=== PATIENT | female | born 1985 | race Caucasian/White ===

== ENCOUNTER → 2025-08-06 13:08 | Outpatient (BNVA) | payer OTHER, SELFPAY | PROVIDERS: Visit Provider Physician Assistant | DX: Z00.00 Encounter for general adult medical examination without abnormal findings (principal); F41.1 Generalized anxiety disorder; E66.01 Morbid (severe) obesity due to excess calories; Z68.41 Body mass index [BMI] 40.0-44.9, adult | CPT/HCPCS: 96127 ==

== ENCOUNTER → 2025-08-06 13:08 | Outpatient (AMB) | payer OTHER, SELFPAY ==
--- OUTSIDE RECORDS SUMMARY | 2022-09-05 11:30 | XMS_ITS | Encounter Summary ---
Author Organization [facility] Address [address] [place] [address] Phone Care Team Providers Care Jackspooler Name Role Phone Veronica Rivera MD Primary Care Provider + Encounter Details Date Type Department Care Team (Late st Contact Info) Description 09/05/2022 11:30 AM EST Hospital Encounter [facility] [address] [place] [phone] Elen Aguillon CNP [address] [place] [phone] [email or web address] Social History Tobacco Use Types Packs/Day Years Used Date Smoking Tobacco: Never Education Answer Date Recorded Are you interested in more education? Not on kate e 01/19/2023 Are you concerned about learning? Not on file 01/19/2023 No 01/19/2023 No 01/19/2023 Digital Access Answer Date Recorded No 02/01/2023 No 02/01/2023 Reliable internet access at home? Not on file 02/01/2023 Device with a working camera? Not on file Intimate Partner Violence Answer Date R ecorded Are you denied basic needs s uch as food, clothing, or medical care? No 11/28/2023 In the past 12 months have y ou been in a relationship with a person who hurts, threatens, or tries to control you? No 11/28/2023 Are you denied basic needs s uch as food, clothing, or medical care? No 11/28/2023 In the past 12 months have y ou been in a relationship with a person who hurts, threatens, or tries to control you? No 11/28/2023 Comments Unknown Sex and Gender Information Value Date Recorded Sex Assigned at Not on file Legal Sex Female 6:54 PM EST Gender Identity Not on file Sexual Orientation Not on file documented as of this encounter Functional Status * Calculated C-SSRS Risk Score (Lifetime/Recent) Answer Date of Assessment Author No Risk Indicated 11/28/2023 6:20 PM EDT Monique Arciniega RN * [place] Suicide Severity Rating Scale (Screener/Recent Self-Report) Question Answer Date of Assessment Author 1. Wish to be (Past 1 Month) No 024 6:20 PM EDT Monique Arciniega RN 2. Non-Specific Active Suici taylor Thoughts (Past 1 Month) No 11/28/2023 6:20 PM EDT Melquiades Arciniega RN 6. Suicidal Behavior (Lifetime) No 4 6:20 PM EDT Monique Arciniega RN documented as of this encounter Plan of Treatment Not on file documented as of this encounter Procedures Procedure Name Priority Date/Time Associated Diagnosis Comments XR FOOT 3 OR MORE VIEWS (RIGHT) Urgent/patient waiting 09/05/2022 11:55 AM EST Right foot strain, initial encounter documented in this encounter Results * XR FOOT 3 OR MORE VIEWS (RIGHT) (09/05/2022 11:55 AM EST) Anatomical Region Laterality Modality Foot Right Computed Radiogr aphy 09/05/2022 11:5 7 AM EST Impressions 09/05/2022 11:58 AM EST No fracture or dislocation. Narrative 09/05/2022 11:58 AM EST XR FOOT 3 OR MORE VIEWS (RIGHT) COMPARISON: None FINDINGS: No fracture. Normal alignment. Normal joint spaces. No soft tissue swelling. Procedure Note Ambrosio Carrillo MD, MPH - 09/05/2022 XR FOOT 3 OR MORE VIEWS (RIGHT) COMPARISON: None FINDINGS: No fracture. Normal alignment. Normal joint spaces. No soft tissueswelling. IMPRESSION: No fracture or dislocation. Elen Aguillon PATHOLOGY ASSISTANT IMG XR LOWER EXTREMITY Catia l Result documented in this encounter Visit Diagnoses Not on filedocumented in this encounter Care Teams Jackspooler Relationship Specialty Start Date End Date Veronica Rivera MD [address] [place] [phone] PCP - General Pediatrics 09/05/22 documented as of this encounter Additional Source Comments The information contained in this document represents components of the legal health record. It is not the complete legal health record.[facility]
--- NOTE | 2025-08-06 13:09 | A.OFFPC_ITS ---
Vital Signs 08/06/25 13:14 Height 5 ft 2.2 in Weight 233 lb 4 oz BMI 42.4 BP 124/72 Blood Pressure Location Rt brachial Position Sitting Respiration 14 Pulse 89 Pulse Source Pulse Oximeter Temp 98 F Temp Source Oral Pulse Oximetry (%) 95 Oxygen Delivery Method Room Air Intake Visit Reasons: CPE Intake Note: New patient visit Technical Training Instructor Required: No Allergies No Known Allergies Allergy (Verified 08/06/25 13:10) Tobacco use date assessed: 08/06/25 Dental Screening Dental Screen Date: 08/06/25 Did you have a dental visit in the last 12 months?: Yes Did you have a dental problem in the last 6 months where you did not have access to dental care?: No Was dental information given to patient?: Patient has dentist HPI CPE HPI Details Patient is a 40-year-old female who presents today to [facility]. She is transferring from [place]. She has not had a physical in 3 years. General: she states her weight fluctuates from 200-260. She is interested in glp1. She is not sure if her insurance will cover it. 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 Psych: Has a history of generalized anxiety and does not want to treat this now. She states that it was worse . She has a 5-year-old in his 7-year-old. 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 1. Little interest or pleasure in doing things: not at all 2. Feeling down, depressed, or hopeless: not at all 3. Trouble falling or staying asleep, or sleeping too much: not at all 4. Feeling tired or having little energy: several days 5. Poor appetite or overeating: not at all 6. Feeling bad about yourself - or that you are a failure or have let yourself or your family down: not at all 7. Trouble concentrating on things, such as reading the newspaper or watching television: not at all 8. Moving or speaking so slowly that other people could have noticed. Or the opposite - being so fidgety or restless that you have been moving around a lot more than usual: not at all 9. Thoughts that you would be better off or of hurting yourself in some way: not at all Total score: 1 Depression Screening Interpretation: Negative Depression Screening Done: Yes 69626 - PHQ-9 Billing: Yes Source: Developed by Drs. Mike Weston, Sirena Fowler, Marty Engle and colleagues, with an educational michelle from [employer]. Thrive Questionnaire Date Thrive assessed: 07/31/25 I am a: Patient What is your living situation today?: I choose not to answer this question Within the past 12 months, did the food you bought not last and you didn't have the money to get more?: I choose not to answer this question Within the past 12 months, did you worry whether your food would run out before you got money to buy more?: I choose not to answer this question Do you have trouble paying for medicines?: I choose not to answer this question Do you have trouble getting transportation to medical appointments?: I choose not to answer this question Do you have trouble paying your heating and electricity bill?: I choose not to answer this question Do you have trouble taking care of your child, family member or friend?: I choose not to answer this question Do you have trouble with day-to-day activities such as bathing, preparing meals, shopping, managing finances, etc.?: I choose not to answer this question Are you currently unemployed and looking for a job?: I choose not to answer this question Are you interested in more education?: I choose not to answer this question Please select the resources that you would like help with: None Currently or been in a relationship where the following occur: I choose not to a nswer THRIVE Score: 0 AUDIT C Alcohol Use Questionnaire (AUDIT-C) 1. How often do you have a drink containing alcohol?: 2-3 times a week 2. How many drinks containing alcohol do you have on a typical day when you are drinking?: 1 or 2 3. How often do you have six or more drinks on one occasion?: Never Total Score: 3 FRANCE-7 AMB Questionnaire FRANCE-7 Feeling nervous, anxious, or on edge: 1 = Several days Not being able to stop or control worryin = Several days Worrying too much about different things: 1 = Several days Trouble relaxin = Several days Being so restless that it is hard to sit still: 0 = Not at all Becoming easily annoyed or irritable: 1 = Several days Feeling afraid as if something awful might happen: 0 = Not at all Total FRANCE-7 score (0-4 normal; 5-9 mild; 10-14 moderate; 15-21 severe): 5 Source: Developed by Drs. Mike Wetson, Sirena Fowler, Marty Engle and colleagues, with an educational michelle from [employer]. FRANCE-7 Assessment Billing FRANCE-7 Assessment Tool: FRANCE-7 Assessment 34723 Physical exam (Primary Care) Depression Screening Interpretation: Negative Thrive Assessment: Date of Thrive Assessment Date Thrive assessed 07/31/25 07/31/25 14:07 Currently or been in a relationship where the following occur: I choose not to answer Const Orientation/consciousness: patient oriented x3 HENMT Ears: hearing grossly normal bilaterally and TM's normal bilaterally General nose exam: No nasal polyps present Face and sinus: Yes sinuses nontender Mouth: Normal oral and palatal mucosa present Eyes Pupils: Equal, round and reactive pupils present EOM: EOMs intact bilaterally Neck Neck: Yes full ROM and Yes no lymphadenopathy Thyroid: Thyroid normal Chest Chest palpation & inspection: normal inspection of the chest Resp Auscultation: clear to auscultation bilaterally Cardio Rate: regular rate Rhythm: regular rhythm Heart sounds: S1 normal heart sound present and S2 normal heart sound present Peripheral pulses: Peripheral pulses 2+ throughout GI Other: Soft, nontender Auscultation: normal bowel sounds Rectal Exam - Female: deferred General: Yes no CVA tenderness Back/Spine/Pelvis Other: Nontender Back: no CVA tenderness Skin General skin exam: no rashes or lesions noted Neuro General: patient oriented x3, gait normal, CN's II-XI intact bilaterally and deep tendon reflexes 2+ bilaterally Cranial nerves: Yes Equal, round and reactive pupils present Motor exam (neuro): 5/5 motor strength present throughout Sensory Exam: double simultaneous stimulation for sensation normal Coordination: [id number] test normal and Romberg test negative Extrem General: Yes normal to inspection and Yes full ROM Psych Affect: normal affect Attitude: cooperative Thought process: Normal thought process present Thought content: Normal thought content present Insight: Good insight present (Psych) Judgement: Good judgement present (Psych) Coding Level of Care Code New Pt Prev Care 18-39yr(13276 Diagnoses Routine general medical examination at a health care facility Z00.00 Severe obesity (BMI >= 40) E66.01 Generalized anxiety disorder F41.1 Additional Codes PHQ-9 - 15012 - PHQ-9 Billing: Yes ([id number]) FRANCE-7 Assessment Billing - FRANCE-7 Assessment Tool: FRANCE-7 Assessment 53744 ([id number]) Assessment & Plan Assessment & Plan (1) Routine general medical examination at a health care facility: Code(s): Z00.00 - Encounter for general adult medical examination without abnormal findings Plan: Health maintenance reviewed Labs ordered We will follow up pending test results (2) Severe obesity (BMI >= 40): Code(s): E66.01 - Morbid (severe) obesity due to excess calories Category: Medical Plan: We will let me know if her insurance covers Wegovy or Zepbound. (3) Generalized anxiety disorder: Code(s): F41.1 - Generalized anxiety disorder Category: Medical Plan: We will monitor Orders: Orders Complete Blood Count Auto Diff Today E66.01 - Morbid (severe) obesity due to e xcess calories, F41.1 - Generalized anxiety disorder, Z00.00 - Encounter for general adult medical examination without abnormal findings Lipid Panel Today E66.01 - Morbid (severe) obesity due to excess calories, F41.1 - Generalized anxiety disorder, Z00.00 - Encounter for general adult medical examination without abnormal findings TSH reflex Free T4 Today E66.01 - Morbid (severe) obesity due to excess calories, F41.1 - Generalized anxiety disorder, Z00.00 - Encounter for general adult medical examination without abnormal findings Vitamin B12 and Folate Today E66.01 - Morbid (severe) obesity due to excess calories, F41.1 - Generalized anxiety disorder, Z00.00 - Encounter for general adult medical examination without abnormal findings UA CC w/rflx Micro + Cult Today E66.01 - Morbid (severe) obesity due to excess calories, F41.1 - Generalized anxiety disorder, R30.0 - Dysuria, Z00.00 - Encounter for general adult medical examination without abnormal findings Comprehensive [place]. Panel Fast Today E66.01 - Morbid (severe) obesity due to excess calories, F41.1 - Generalized anxiety disorder, Z00.00 - Encounter for general adult medical examination without abnormal findings Hemoglobin A1c Today E66.01 - Morbid (severe) obesity due to excess calories, F41.1 - Generalized anxiety disorder, R73.01 - Impaired fasting glucose, Z00.00 - Encounter for general adult medical examination without abnormal findings Microalbumin, Random (w Creat) Today E66.01 - Morbid (severe) obesity due to excess calories, F41.1 - Generalized anxiety disorder, Z00.00 - Encounter for general adult medical examination without abnormal findings
[2025-08-06 13:14] VITALS: BP 124/72; PULSE 89; RESP 14; TEMP 36.6; O2SAT 95; BMI 42.4
--- OUTSIDE RECORDS SUMMARY | 2025-08-06 16:15 | XMS_ITS | Clinical Summary ---
Author Organization [facility] Address [address] [place] [phone] Phone Care Team Providers Care Fur Mixer Name Role Phone Veronica Rivera MD Primary Care Provider + Allergies No known active allergies Medications citalopram (CELEXA) 10 MG tablet Take 1 tablet by mouth every morning. 04/03/2023 Active phenazopyridine (PYRIDIUM) 200 MG tablet Take 1 tablet (200 mg total) by mouth 3 (three) times a day as needed for pain (specific location in comments). 10 tablet 04/22/2023 Active Active Problems Problem Noted Date Diagnosed Date Vitamin D insufficiency 09/08/2021 Anxiety 05/07/2021 02/01/2023 Obesity affecting in first trimester 1 09/27/2016 Overview (09/05/2022): Early 1 hr gtt normal Hypothyroidism, acquired 12/05/2016 Overview (09/05/2022): 07/05/17: taking synthroid 50mcg/day Check TSH Q trimester Normal TSH in , by trimester (per u/[facility] report from [facility]): T1 0.1 - 2.5 mIU/L (06/19/17 TSH is 1.87) T2 0.2 - 3.0 mIU/L (09/01/17 TSH is 1.54) T3 0.3 - 3.0 mIU/L (10/27/17 TSH is 1.34) Per patient she was never formally diagnosed, was on medication to help to achieve . Infertility, female 10/07/2016 Immunizations Immunization Administration Dates Next Due DTP 06/11/1990, 7,1986,08/11,1986 Hepatitis B 12/10/1997,08/11/1997,06/11/1997 Hib,HbOC 01/10/1988 INFLUENZA, SPLIT VIRUS, TRIVALENT PF 07/10/2015 INFLUENZA, SPLIT VIRUS, TRIV ALENT W/ PRESERVATIVE IM 07/04/2019,06/30/2014 Influenza Quadrivalent MDCK Preservative Free IM 09/07/2021,07/05/2017 MMR 01/09/1998,05/12/1987 Meningococcal MPSV4 03/12/2004 Polio - OPV 06/11/1990, 7,1986,06/11,1986 Td (adult) 5 Lf Tetanus Toxo id, PF, Adsorbed 04/11/1998 Tdap 11/28/2023,11/02/2017,05/08/2012 Family History Medical History Relation Comments Hypertension Father hypertension Type 2 Diabetes Paternal Grandfather diabetes me llitus type 2 Ovarian cancer Paternal Grandmother ovarian can cer ; age 57 Relation Status Comments Father Alive Paternal Grandfather Paternal Grandmother Social History Tobacco Use Types Packs/Day Years Used Date Smoking Tobacco: Never Tobacco Cessation:Counseling Given: Not Answered Education Answer Date Recorded Are you interested [...] on file Sexual Orientation Not on file Last Filed Vital Signs Vital Sign Reading Time Taken Comments Blood Pressure 124/85 11/28/2023 7:58 PM EDT Pulse 73 11/28/2023 7:58 PM EDT Temperature 36.3 C (97.4 F) 11/28/2023 7:58 PM EDT Respiratory Rate 17 11/28/2023 7:58 PM EDT Oxygen Saturation 96% 11/28/2023 7:58 PM EDT Inhaled Oxygen Concentration - - Weight 95.3 kg (210 lb) 11/28/2023 2:21 PM EDT Height 157.5 cm (5' 2 ) 11/28/2023 2:21 PM EDT Body Mass Index 38.41 11/28/2023 2:21 PM EDT Plan of Treatment Health Maintenance Due Date Last Done Comments DEPRESSION SCREENING 1998 HEPATITIS C SCREENING 02/05/2004 HIV ONE-TIME SCREENING (18-65 YEARS) 02/05/2004 SMOKING STATUS SCREENING (Once After 26 Yrs) 02/05/2012 PAP SMEAR 06/09/2014 06/09/2011, 03/03/2010 SCREENING FOR DIABETES 2021 INFLUENZA VACCINE (#1) 2025 , 07/04/2019, 07/05/2017, Additional history exists COVID-19 VACCINE (2024- season) 2025 01/26/2021, 01/05/2021 Adult Td,Tdap Booster 11/27/2033 11/28/2023 , 11/02/2017, 05/08/2012, Additional history exists HIB VACCINES Completed 01/10/1988 IPV VACCINES Completed 06/11/1990, 1209/1986, 1986, Additional history exists MENINGOCOCCAL VACCINES (ACWY) Aged Out 03/12/2004 No longer eligible based on patient's age to complete this topic HEPATITIS A VACCINES Aged Out No long er eligible based on patient's age to complete this topic MENINGOCOCCAL VACCINES (B) Aged Out N o longer eligible based on patient's age to complete this topic PNEUMOCOCCAL VACCINES (0-49 years) Aged Out No longer eligible based on patient's age to complete this topic Medical Devices Not on file Procedures Procedure Name Priority Date/Time Associated Diagnosis Comments PAP TEST Routine 06/09/2011 12:00 AM EDT from Last 3 Months or Most Recently Relevant to Health Maintenance Results * Pap Smear (06/09/2011 12:00 AM EDT) 06/09/2011 Narrative [facility] - 06/21/2011 3:02 PM EDT Accession Number: [id number] Report Status: Final Type: Cytology Specimen Type: ThinPrep Pap Test Procedure Date: 06/09/2011 Ordering Provider: JACQUELYN BOUCHER M.D. CASE: [id number] PATIENT: ANTONIETTA [employer] Docent: GILDA Enriquez(ASCP) THINPREP PAP TEST, CERVICAL FINAL CYTOLOGIC INTERPRETATION SPECIMEN ADEQUACY: Satisfactory for evaluation. QUALITY INDICATORS: Endocervical/transformation zone component absent/insufficient. INTERPRETATION: NEGATIVE FOR INTRAEPITHELIAL LESION OR MALIGNANCY. AUTOMATED REVIEW: This specimen was prescreened using the ThinPrep Imaging System. CLINICAL DATA LMP: 05/18/11 TOTAL SLIDES 1 PROCEDURES Screening or High Risk ThinPrep with Auto Pre-Screen - [facility] 1 Final Diagnosis by Doris VO(ASCP), Electronically signed on Tuesday June 21, 2011 at 03:01:19PM us Conversion Provider Not In Sys CYTOLOGY ORDERABL ES Final Result [address] [id number] from Last 3 Months or Most Recently Relevant to Health Maintenance Insurance [facility] [address] [address] [place] [address] [place] [address] [place] [place] [address] [place] [address] [employer] Care Teams Fur Mixer Relationship Specialty Start Date End Date Veronica Rivera MD [address] [place] [address] PCP - General Pediatrics 09/05/22 Additional Source Comments The information contained in this document represents components of the legal health record. It is not the complete legal health record.[facility]
--- OUTSIDE RECORDS SUMMARY | 2025-08-06 16:15 | XMS_ITS ---
Author Name [facility] Organization Unknown Care Team Organization Name Specialty Phone Email Start Date End Da te [facility] Ally Mitchell DO Primary Care 05/18/202304/11 [facility] Adrián Barker Primary Care 02/17/202304/11 [facility] Rosalba, PROVIDER Primary Care 07/19/202204/11
== END ==
LOC: HO.HMCFM 13:09
PROVIDERS: Visit Provider Physician Assistant
DX: Z00.00 Encounter for general adult medical examination without abnormal findings (principal); E66.01 Morbid (severe) obesity due to excess calories; F41.1 Generalized anxiety disorder; Z68.41 Body mass index [BMI] 40.0-44.9, adult

== ENCOUNTER 2025-08-19 07:42 | Outpatient (REF) | payer OTHER, SELFPAY ==
--- OUTSIDE RECORDS SUMMARY | 2022-09-05 11:30 | XMS_ITS | Encounter Summary ---
Author Organization [facility] Address [address] [place] [phone] Phone Care Team Providers Care Geophysical Laboratory Director Name Role Phone Veronica Rivera MD Primary Care Provider + Encounter Details Date Type Department Care Team (Late st Contact Info) Description 09/05/2022 11:30 AM EST Hospital Encounter [facility] [address] [place] [phone] Elen Aguillon CNP [address] [place] [phone] [email or web address] Social History Tobacco Use Types Packs/Day Years [...] 6:20 PM EDT Monique Arciniega RN * [place] Suicide Severity Rating Scale (Screener/Recent Self-Report) Question [...] IMPRESSION: No fracture or dislocation. Elen Aguillon DISTRICT DIRECTOR IMG XR LOWER EXTREMITY Catia l Result documented in this encounter Visit Diagnoses Not on filedocumented in this encounter Care Teams Geophysical Laboratory Director Relationship Specialty Start Date End Date Veronica Rivera MD [address] [place] [phone] PCP - General Pediatrics 09/05/22 documented as of this encounter Additional Source Comments The information contained in this document represents components of the legal health record. It is not the complete legal health record.[facility]
--- OUTSIDE RECORDS SUMMARY | 2025-08-19 08:06 | XMS_ITS | Clinical Summary ---
Author Organization [facility] ity Address [address] [place] [address] Care Team Providers Care Photographic Process Screen Maker Name Role Phone Ally Mitchell DO Primary Care Provider [phone] Surgical History Surgery Date Site/Laterality Comments SECTION 2018 PROCEDURE: HISTORICAL DELIVERY Medical History Medical History Date Comments Historical Medical DX 04/10/2012 DX:NO ACTI VE MEDICAL PROBLEMS Family History Medical History Relation Name Comments Ovarian cancer Paternal Grandmother dads mom, ,60 Breast cancer Neg Hx Colon cancer Neg Hx Prostate cancer Neg Hx Uterine cancer Neg Hx Relation Name Status Comments Brother Alive healthy Father Alive healthy Maternal Grandfather COPD Maternal Grandmother brain a neurysm Mother Alive healthy Paternal Grandfather Alive healthy Paternal Grandmother ovarian cancer Sister 1 Alive healthy Sister 2 Alive healthy Social History Tobacco Use Types Packs/Day Years Used Date Smoking Tobacco: Never Smokeless Tobacco: Never Alcohol Use Standard Drinks/Week Comments Yes 1.7 (1 standard drink = 0.6 oz p ure alcohol) Comments Unknown Sex and Gender Information Value Date Recorded Sex Assigned at Not on file Legal Sex Female 7:59 PM EST Gender Identity Not on file Sexual Orientation Not on file Last Filed Vital Signs Vital Sign Reading Time Taken Comments Blood Pressure 104/60 04/03/2023 10:09 AM EDT Pulse 92 04/03/2023 10:09 AM EDT Temperature - - Respiratory Rate - - Oxygen Saturation - - Inhaled Oxygen Concentration - - Weight 99.8 kg (220 lb) 04/03/2023 10:09 AM EDT Height 157.5 cm (5' 2 ) 04/03/2023 10:09 AM EDT Body Mass Index 40.24 04/03/2023 10:09 AM EDT Plan of Treatment Health Maintenance Due Date Last Done Comments Hepatitis B Vaccines (1 of 3 - 19+ 3-dose series) 2005 HPV Vaccines (1 - 3-dose SCDM series) 2013 Cervical Cancer Screening: Pap Smear 04/01/2022 04/01/2019 Cholesterol Screening (Lipid Panel) 08/13/2022 HIV Screening 08/13/2022 Hepatitis C Screening 08/13/2022 Social Influencers of Health Screening 08/13/2022 Depression Screening 09/11/2024 COVID-19 Vaccine ( - 2024- season) 2025 Influenza Vaccine (#1) 2025 , 07/04/2019, 07/05/2017, Additional history exists DTaP,Tdap,and Td Vaccines (3 - Td or Tdap) 11/02/2027 11/02/2017, 05/08/2012 RSV Immunization Adult Patients (1 - 1-dose 75+ series) 2061 HIB Vaccines Aged Out No longer eligi ble based on patient's age to complete this topic Hepatitis A Vaccines Aged Out No long er eligible based on patient's age to complete this topic IPV Vaccines Aged Out No longer eligi ble based on patient's age to complete this topic MMR Vaccines Aged Out No longer eligi ble based on patient's age to complete this topic Meningococcal ACWY Vaccine Aged Out N o longer eligible based on patient's age to complete this topic Meningococcal B Vaccine Aged Out No l onger eligible based on patient's age to complete this topic Pneumococcal Vaccine: Pediatrics (0 to 5 Years) and At-Risk Patients (6 to 49 Years) Aged Out No longer eligible based on patient's age to complete this topic RSV Immunization Patients Under 20 months Aged Out No longer eligible based on patient's age to complete this topic Varicella Vaccines Aged Out No longer eligible based on patient's age to complete this topic Procedures Procedure Name Priority Date/Time Associated Diagnosis Comments PAP SMEAR Routine 04/01/2019 from Last 3 Months or Most Recently Relevant to Health Maintenance Results * Pap smear (04/01/2019) 04/01/2019 Narrative HISTORICAL TESTING LAB RESULTING AGENCY - 04/05/2019 6:30 PM EDT [id number] THINPREP PAP, IMAGED: NEGATIVE FOR SQUAMOUS INTRAEPITHELIAL LESION AND MALIGNANCY . ANALILIA PARNELL , CT(ASCP) (CASE ELECTRONICALLY SIGNED 04 05 2019) RESULT OF APTIMA HIGH RISK HPV ASSAY: HIGH RISK HPV: NEGATIVE (SEROTYPES 16,18,31,33,35,39,45,51,52,56,58,59,66,68) COMPLETED ON 2019-04-04 ADEQUACY: SATISFACTORY ENDOCERVICAL/TRANSFORMATION ZONE COMPONENT ABSENT. SOURCE: THINPREP PAP HPV ANY DX: REFLEX 16 AND 18, CERVICAL, IMAGED CLINICAL INFORMATION: HPV ANY DIAGNOSIS. PAP HX NEG [Z12.4] us Rabia JI LAB CYTOLOGY ORDERABLES Final R esult HISTORICAL TESTING LAB RESULTING AGENCY from Last 3 Months or Most Recently Relevant to Health Maintenance Care Teams Photographic Process Screen Maker Relationship Specialty Start Date End Date Ally Mitchell DO [address] [place] [address] [place] [address] PCP - General 02/16/23
[2025-08-19 10:58] LABS: MANUAL DIFF FLAG NO
[2025-08-19 11:02] LABS: Hematocrit 41.1 % (37.0-47.0); Hemoglobin 13.5 g/dl (12.0-16.0); Imm Gran Abs Auto 0.01 X10*3/uL (0.00-0.03); Imm Gran Pct Auto 0.2 % (0.0-0.4); Lymphocytes Absolute Auto 1.5 X10*3/uL (1.2-4.9); Mean Corpuscular HGB Conc 32.8 g/dl (31.0-35.0); Mean Corpuscular Hemoglobin 28.4 pg (27.0-33.0); Mean Corpuscular Volume 86.5 fL (80.0-98.0); NRBC Abs Auto 0.000 X10*3/uL (0.0-0.012); NRBC Pct Auto 0.0 /100WBC (0.0-0.2); Platelet Count 158 X10*3/uL (160-400); Red Blood Count 4.75 X10*6/uL (4.20-5.50); White Blood Count 5.6 X10*3/uL (4.8-10.8)
[2025-08-19 11:27] LABS: Appearance Urine Turbid; Glucose Urine UA Negative (Negative); PH 5.5 (5.0-9.0); Specific Gravity - Urine 1.025 (1.005-1.025); UMIC TRIGGER UACC YES
[2025-08-19 11:50] LABS: Alanine Aminotransferase 26 U/L (0-31); Albumin Level 4.4 g/dL (3.5-5.0); Alkaline Phosphatase 57 U/L (39-117); Anion Gap 9 (12-20); Aspartate Amino Transferase 22 U/L (5-31); Blood Urea Nitrogen 16 mg/dL (9-16); Calcium 9.4 mg/dL (8.4-10.2); Carbon Dioxide 27 mmol/L (22-29); Chloride 105 mmol/L (96-108); Cholesterol 193 mg/dL (<200); Estimated Glomerular Filt Rate > 60; HDL Cholesterol 66 mg/dL (>40); Potassium 4.2 mmol/L (3.3-5.1); Sodium 137 mmol/L (135-145); Total Protein 7.1 g/dL (6.5-8.0); Triglycerides 74 mg/dL (<150)
[2025-08-19 12:00] LABS: Microalbum/Creatinine Ratio Ur 4.9 ug/mg cr (<30)
[2025-08-19 12:10] LABS: Folate 10.4 ng/mL (> or = 4.0); Vitamin B12 421 pg/mL (200-900)
== END 2025-08-19 07:43 | disposition home or self-care (01) ==
LOC: HO.WFDLDS 07:42
PROVIDERS: Visit Provider Physician Assistant
DX: Z00.00 Encounter for general adult medical examination without abnormal findings (principal); E66.01 Morbid (severe) obesity due to excess calories; F41.1 Generalized anxiety disorder; R73.01 Impaired fasting glucose
CPT/HCPCS: 36415; 80053; 80061; 81001; 82043; 82570; 82607; 82746; 83036; 84443; 85025

== ENCOUNTER 2025-09-02 09:07 | Outpatient (REF) | payer OTHER, SELFPAY ==
--- OUTSIDE RECORDS SUMMARY | 2022-09-05 11:30 | XMS_ITS | Encounter Summary ---
Author Organization [facility] Address [address] [place] [phone] Phone Care Team Providers Care Back Digger Operator Name Role Phone Veronica Rivera MD Primary Care Provider + Encounter Details Date Type Department Care Team (Late st Contact Info) Description 09/05/2022 11:30 AM EST Hospital Encounter [facility] [address] [place] [phone] Elen Aguillon CNP [address] [place] [phone] [email or web address] Social History Tobacco Use Types Packs/Day Years [...] on file documented as of this encounter Plan of [...] IMPRESSION: No fracture or dislocation. Elen Aguillon DIE CLEANER IMG XR LOWER EXTREMITY Catia l Result documented in this encounter Visit Diagnoses Not on filedocumented in this encounter Care Teams Back Digger Operator Relationship Specialty Start Date End Date Veronica Rivera MD [address] [place] [phone] PCP - General Pediatrics 09/05/22 documented as of this encounter Additional Source Comments The information contained in this document represents components of the legal health record. It is not the complete legal health record.[facility]
--- OUTSIDE RECORDS SUMMARY | 2025-09-02 09:42 | XMS_ITS | Encounter Summary ---
Author Organization [facility] Prior to 07/12/2024 Address [address] [place] [address] Care Team Providers Care Fitting Room Attendant Name Role Phone Veronica Rivera MD Primary Care Provider Unava Ally Colorado DO Primary Care Provider Unavaila ble Encounter Details Date Type Department Care Team Description 11/22/2017 Can Filling Room Sweeper Report Medical Records [address] [place] [address] [facility] Diabetes Education [address] [facility] [address] [place] [address] Social History Tobacco Use Types Packs/Day Years Used Date Smoking Tobacco: Never Smokeless Tobacco: Never Alcohol Use Standard Drinks/Week Comments Yes 1.7 (1 standard drink = 0.6 oz p ure alcohol) social Sex Assigned at Date Recorded Not on file documented as of this encounter Plan of Treatment Not on file documented as of this encounter Visit Diagnoses Not on filedocumented in this encounter Care Teams Fitting Room Attendant Relationship Specialty Start Date End Date Veronica Rivera MD PCP - General Internal Medicine 03/08/12 02/15/23 Ally Mitchell DO PCP - General Internal Medicine 02/16/23 documented as of this encounter
--- OUTSIDE RECORDS SUMMARY | 2025-09-02 09:42 | XMS_ITS | Encounter Summary ---
Author Organization [facility] Prior to 07/12/2024 Address [address] [place] [address] Care Team Providers Care Emery Wheel Molder Name Role Phone Veronica Rivera MD Primary Care Provider Unava ilable Ally Mitchell DO Primary Care Provider Unavaila ble Encounter Details Date Type Department Care Team Description 12/12/2017 Employee Welfare Manager Report Medical Records [address] [place] [address] Janeth Moreno MD Social History Tobacco Use Types Packs/Day Years [...] on filedocumented in this encounter Care Teams Emery Wheel Molder Relationship Specialty Start Date End Date Veronica Rivera MD PCP - General Internal Medicine 03/08/12 02/15/23 Ally Mitchell DO PCP - General Internal Medicine 02/16/23 documented as of this encounter
--- OUTSIDE RECORDS SUMMARY | 2025-09-02 09:42 | XMS_ITS | Clinical Summary ---
Author Organization [facility] ity Address [address] [place] [address] Care Team Providers Care Social Service Manager Name Role Phone Ally Mitchell DO Primary Care Provider [phone] Surgical History Surgery Date Site/Laterality Comments SECTION [...] RESULTING AGENCY - 04/05/2019 6:30 PM EDT [id number] THINPREP PAP, IMAGED: NEGATIVE FOR SQUAMOUS INTRAEPITHELIAL [...] Recently Relevant to Health Maintenance Care Teams Social Service Manager Relationship Specialty Start Date End Date Ally Mitchell DO [address] [place] [address] [place] [address] PCP - General 02/16/23
--- OUTSIDE RECORDS SUMMARY | 2025-09-02 09:42 | XMS_ITS | Encounter Summary ---
Author Organization [facility] Prior to 07/12/2024 Address [address] [place] [address] Care Team Providers Care Curriculum Development Specialist Name Role Phone Veronica Rivera MD Primary Care Provider Unava Ally Colorado DO Primary Care Provider Unavaila ble Encounter Details Date Type Department Care Team Description 11/22/2017 Dip Lube Operator Report Medical Records [address] [place] [address] [facility] Diabetes Education [address] [facility] [address] [place] [address] Social History Tobacco Use Types Packs/Day Years [...] on filedocumented in this encounter Care Teams Curriculum Development Specialist Relationship Specialty Start Date End Date Veronica Rivera MD PCP - General Internal Medicine 03/08/12 02/15/23 Ally Mitchell DO PCP - General Internal Medicine 02/16/23 documented as of this encounter
--- OUTSIDE RECORDS SUMMARY | 2025-09-02 09:42 | XMS_ITS | Encounter Summary ---
Author Organization [facility] Prior to 07/12/2024 Address [address] [place] [address] Care Team Providers Care Lining Feller Name Role Phone Veronica Rivera MD Primary Care Provider Unava ilable Ally Mitchell DO Primary Care Provider Unavaila ble Reason for Visit * Reason Onset Date Comments APPOINTMENT 07/12/2016 Encounter Details Date Type Department Care Team Description 07/12/2016 Telephone VIDEOTAPE RECORDING ENGINEER - [address] [address] Tatiana Patel CNM APPOINTMENT Social History Tobacco Use Types Packs/Day Years Used Date Smoking Tobacco: Never Smokeless Tobacco: Never Alcohol Use Standard Drinks/Week Comments Yes 1.7 (1 standard drink = 0.6 oz p ure alcohol) social Sex Assigned at Date Recorded Not on file documented as of this encounter Miscellaneous Notes * Telephone Encounter - Cristian Bo - 07/12/2016 2:59 PM EDT LVM for pt to call back. 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 Please schedule. ABEL documented in this encounter Plan of Treatment Not on file documented as of this encounter Visit Diagnoses Not on filedocumented in this encounter Care Teams Lining Feller Relationship Specialty Start Date End Date Veronica Rivera MD PCP - General Internal Medicine 03/08/12 02/15/23 Ally Mitchell DO PCP - General Internal Medicine 02/16/23 documented as of this encounter
--- OUTSIDE RECORDS SUMMARY | 2025-09-02 09:42 | XMS_ITS | Encounter Summary ---
Author Organization [facility] Prior to 07/12/2024 Address [address] [place] [address] Care Team Providers Care Tank Refinisher Name Role Phone Veronica Rivera MD Primary Care Provider Unava ilable Ally Mitchell DO Primary Care Provider Unavaila ble Encounter Details Date Type Department Care Team Description 03/31/2015 Release of Information Medical Records [address] [place] [address] Abstract, Provider Social History Tobacco Use Types Packs/Day Years [...] on filedocumented in this encounter Care Teams Tank Refinisher Relationship Specialty Start Date End Date Veronica Rivera MD PCP - General Internal Medicine 03/08/12 02/15/23 Ally Mitchell DO PCP - General Internal Medicine 02/16/23 documented as of this encounter
--- OUTSIDE RECORDS SUMMARY | 2025-09-02 09:42 | XMS_ITS | Encounter Summary ---
Author Organization [facility] Prior to 07/12/2024 Address [address] [place] [address] Care Team Providers Care Limited Radiology Technician Name Role Phone Ally Mitchell DO Primary Care Provider Unavaila ble Encounter Details Date Type Department Care Team Description 04/04/2023 Telephone Adult Medicine - [address] [address] Ally Mitchell DO Social History Tobacco Use Types Packs/Day Years Used Date Smoking Tobacco: Never Smokeless Tobacco: Never Alcohol Use Standard Drinks/Week Comments Yes 1.7 (1 standard drink = 0.6 oz p ure alcohol) social- none since Sex Assigned at Date Recorded Not on file COVID-19 Exposure Response Date Recorded In the last 10 days, have yo u been in contact with someone who was confirmed or suspected to have Coronavirus/COVID-19? No / Unsure 04/03/2023 10:05 AM EDT documented as of this encounter Miscellaneous Notes * Telephone Encounter - Yennifer Arellano - 04/04/2023 11:27 AM EDT Pt called back and informed Labs reviewed, stable * Telephone Encounter - Ellen Fuller M.A. - 04/04/2023 11:22 AM EDT ----- Message from Ally Mitchell DO sent at 04/04/2023 10:41 AM EDT ----- Please review documented in this encounter Plan of Treatment Not on file documented as of this encounter Visit Diagnoses Not on filedocumented in this encounter Care Teams Limited Radiology Technician Relationship Specialty Start Date End Date Ally Mitchell DO PCP - General Internal Medicine 02/16/23 documented as of this encounter
--- OUTSIDE RECORDS SUMMARY | 2025-09-02 09:43 | XMS_ITS | Clinical Summary ---
Author Organization [facility] Prior to 07/12/2024 Address [address] [place] [address] Care Team Providers Care Feather Renovator Name Role Phone Ally Mitchell DO Primary Care Provider Unavaila ble Allergies No known active allergies Medications Medication Sig Dispensed Refills Start Date End Date Status citalopram (CELEXA) 10 MG tabletIndications:FRANCE (generalized anxiety disorder) Take 1 Tablet by mouth daily. 90 Tablet 1 04/03/2023 Active Active Problems Problem Noted Date FRANCE (generalized anxiety disorder) 04/03 Subclinical hypothyroidism 09/08/2021 Vitamin D insufficiency 09/08/2021 Morbid obesity with BMI of 40.0-44.9, ad ult 09/07/2021 Abnormal first trimester screen 04/19/20 Overview: + lynn Will seen genetic counselor at [facility] Obesity affecting in [facility] 07/28/2017 Overview: Early 1 hr gtt normal Infertility, female 10/07/2016 Resolved Problems Problem Noted Date Resolved Date Placental jackson 06/04/2019 06/12/2019 Overview: 05/31/19 survey unremarkable. Fundal placenta away from previous uterine scar. A single planceta jackson is noted. Patient declined diagnostic testing. M recommendations- third trimester sono for growth. Abnormal GTT (glucose tolerance test) 04/04/2019 06/12/2019 Overview: Early gtt 135, 3 hour ordered- normal 3 hour History of gestational diabe eris in prior , currently 04/01/2019 06/12/2019 History of section 04/01/201910/2018 Obesity in 04/01/2019 06/12/2019 Overview: HgbA1C at initial labs One hour GTT in first trimester Repeat GTT 24-28 weeks if early is normal Level 2 Survey Refer to nutrition for BMI?40 Growth US at 32 and 36 weeks for BMI?40 Weekly NST at 32 weeks for BMI? 45 Screen for BENJAMIN (using tool) and refer for sleep study if positive Anesthesia consult for pre- BMI ?45 or ?50 lb weight gain Transfer to [facility] for pre- BMI?50 DVT prophylaxis- Lovenox if CS and BMI?35 care, subsequent 03/26/2019 06/12/2019 Overview: Zika screen: neg 1. [place] site: [place] 2. Delivery site: [facility] 3. Dating criteria: LMP only 3. Blood type: Lab Results Component Value Date BLDTYPE O POSITIVE 06/19/2017 4. Genetic screening: Date: Result: 5. GBS: Date: 6. FOB name: 7. Plans A. Epidural or other pain management - B. Labor support identified - C. Tdap - Date: D. Breast or Bottle feed: breast E. Baby's name - F. Circumcision - Gestational diabetes mellitu s treated with oral hypoglycemic therapy 11/07/2017 02/21/2018 Overview: 12/01/17 Fasting blood sugars in low 100's. All postprandiols are normal. She will call endocrine - may need nightly insulin? 12/05/17 - FBS 90s to low 100s. Al PP normal. Pt reports she called [facility] Diabetic Edu dept to report mildly elevated FBS - she reports they told her to eat a nightly snack. Referral placed to Dr Navarro office 12/05/17 Dr Powell recommends starting nightly hypoglycemic - either 10u NPH or 2.5mg glyburide 12/06/17 Spoke with patient and script sent to pharmacy for 2.5mg glyburide nightly. She will begin twice weekly testing. 12/15/17 Reactive NST. FBS about 85-90, PP have also been normal. 12/21/17. Reactive NST. FBS 80-100s, PP normal. Remains on glyburide 2.5mg PO at dinner. Being followed by [facility]. IOL scheduled for 39 weeks. She is counseled re: risk of shoulder dystocia, Erbs, depressed APGARS, and/or maternal injury. All questions answered. 12/29/17 - Reactive NST. FBS 80's-low 90's. (One 106 - forgot med). All PP normal. 01/04/18 - Reactive NST. FBS 80's-low 90's. PP normal. Abnormal glucose tolerance in 10/27/19 18 02/21/2018 Overview: 1 hr gtt 10/27/17 - 137 3 hr - 1 HR GLUCOSE <180 mg/dL 185 (H) 3 HR GLUCOSE <140 mg/dL 99 2 HR GLUCOSE <155 mg/dL 135 FASTING GLUCOSE 70 - 100 mg/dL 104 (H) , supervision, high-risk 06/19/2017 02/21/2018 Overview: Zika screen; neg 1. [place] site: [place] 2. Delivery site: [facility] 3. Dating criteria: LMP confirmed by 1st trimester ultrasound 3. Blood type: O positive 4. Genetic screening: PANARAMA Date: 08/22/17 Result: Normal ultrasound 5. GBS: Negative Date: 12/21/17 6. FOB name: Fermin Rubalcava 7. Plans A. Epidural or other pain management - epidural B. Labor support identified - Khadar; possibly sister Jessica Kumar Tdap - Date: 11/02/17 D. Breast or Bottle feed: breast E. Baby's name - Cris Dockery. Circumcision - NA 8. Ultrasound -08/22/17 - w3d - visualized anatomy appears normal. Incomplete cardiac views. Posterior placenta, cervix 5.4cm. 09/06/17 - w4d - remainder of anatomy appears normal. 10/03/17 - w3d - EFW 717g 1 lb 9oz 54%ile 11/01/17 - w4d - EFW 1320g 2 lb 15oz 61%ile 11/29/17 - 33w2d - EFW 2186g 4 lb 13oz 71%ile 12/04/17 - 34w2d - BPP 812/13/17 - 35w4d - EFW 2598g 5 lb 12oz 57%ile BPP 812/19/17 - 36w3d - BPP 812/26/17 - 37w3d - EFW 3081g 6 lb 13oz 61%ile BPP 04/18 HC:AC 0.94 01/01/18 - 38w3d - BPP 04/18 Hypothyroidism, goal TSH <2.0 12/05/2016 Overview: 07/05/17: taking synthroid 50mcg/day Check TSH Q trimester Normal TSH in , by trimester (per u/s report from [facility]): T1 0.1 - 2.5 mIU/L (06/19/17 TSH is 1.87) T2 0.2 - 3.0 mIU/L (09/01/17 TSH is 1.54) T3 0.3 - 3.0 mIU/L (10/27/17 TSH is 1.34) Per patient she was never formally diagnosed, was on medication to help to achieve . Immunizations Name Administration Dates Next Due Influenza (> 6 Months) 07/04/2019,06/30/2014 Influenza (>6 Months) Split Preservative Free Influenza Vaccine-preservati ve Free-quadrivalent 4 Years 09/07/2021,07/05/2017 Tdap 11/02/2017,05/08/2012 Family History Medical History Relation Name Comments CA Ovarian Paternal Grandmother dads mo m, ,60 CA Breast Negative Hx CA Colon Negative Hx CA Prostate Negative Hx Uterine Cancer Negative Hx Relation Name Status Comments Brother Alive [...] Assigned at Date Recorded Not on file Last Filed Vital Signs Vital Sign Reading Time Taken Comments Blood Pressure 128/70 09/07/2021 11:14 AM EST Pulse 86 09/07/2021 11:14 AM EST Temperature 36.2 C (97.2 F) 09/07/2021 11:14 AM EST Respiratory Rate 16 09/07/2021 11:14 AM EST Oxygen Saturation 98% 09/07/2021 11:14 AM EST RA Inhaled Oxygen Concentration - - Weight 99.8 kg (220 lb) 04/03/2023 10:09 AM EDT Height 157.5 cm (5' 2 ) 04/03/2023 10:09 AM EDT Body Mass Index 40.24 04/03/2023 10:09 AM EDT Plan of Treatment Health Maintenance Due Date Last Done Comments Covid-19 Vaccine (#1) 1986 CERVICAL CANCER SCREENING 04/01/20222018, 07/20/2016, 06/03/2013, Additional history exists BMI CHECK/ADVISE 09/11/2024 04/03/2023, , 04/19/2019, Additional history exists INFLUENZA (#1) 2025 09/07/2021, 06/12, 07/05/2017, Additional history exists DTAP/TDAP/TD (3 - Td or Tdap) 11/02/2027 11/02/2017, 05/08/2012 CHOLESTEROL SCREENING 04/03/2028 04/03/2023 , 09/07/2021, 05/08/2012, Additional history exists PNEUMOCOCCAL VACCINE FOR HIG H RISK PATIENTS (#1) 2051 Care Teams Feather Renovator Relationship Specialty Start Date End Date Ally Mitchell DO PCP - General Internal Medicine 02/16/23
--- OUTSIDE RECORDS SUMMARY | 2025-09-02 09:43 | XMS_ITS | Encounter Summary ---
Author Organization [facility] Prior to 07/12/2024 Address [address] [place] [address] Care Team Providers Care Harness Cutter Name Role Phone Veronica Rivera MD Primary Care Provider Unava ilable Ally Mitchell DO Primary Care Provider Unavaila ble Encounter Details Date Type Department Care Team Description 06/27/2017 Release of Information Medical Records [address] [place] [address] Abstract, Provider Social History Tobacco Use Types [...] on filedocumented in this encounter Care Teams Harness Cutter Relationship Specialty Start Date End Date Veronica Rivera MD PCP - General Internal Medicine 03/08/12 02/15/23 Ally Mitchell DO PCP - General Internal Medicine 02/16/23 documented as of this encounter
--- OUTSIDE RECORDS SUMMARY | 2025-09-02 09:43 | XMS_ITS | Encounter Summary ---
Author Organization [facility] Prior to 07/12/2024 Address [address] [place] [address] Care Team Providers Care Knit Goods Mender Name Role Phone Veronica Rivera MD Primary Care Provider Ally Heath DO Primary Care Provider Unavaila ble Encounter Details Date Type Department Care Team Description 06/07/2018 Pt. Non Urgent Medical Question [address] [address] Tatiana Patel CNM Social History Tobacco Use Types Packs/Day Years Used Date Smoking Tobacco: Never Smokeless Tobacco: Never Alcohol Use Standard Drinks/Week Comments Yes 1.7 (1 standard drink = 0.6 oz p ure alcohol) social Sex Assigned at Date Recorded Not on file documented as of this encounter Progress Notes * Kay Rice R.N. - 06/07/2018 3:34 PM EDTFrom: Antonietta Flores To: Tatiana Lomeli CNM Sent: 06/07/2018 3:27 PM EDT Subject: Vagisil Prohydrate question I bought Vagisil Prohydrate to help with dryness while I'm . On the box it says to consult your doctor before using if you're nursing...is this product ok to use? documented in this encounter Plan of Treatment Not on file documented as of this encounter Visit Diagnoses Not on filedocumented in this encounter Care Teams Knit Goods Mender Relationship Specialty Start Date End Date Veronica Rivera MD PCP - General Internal Medicine 03/08/12 02/15/23 Ally Mitchell DO PCP - General Internal Medicine 02/16/23 documented as of this encounter
--- OUTSIDE RECORDS SUMMARY | 2025-09-02 09:43 | XMS_ITS | Encounter Summary ---
Author Organization [facility] Prior to 07/12/2024 Address [address] [place] [address] Care Team Providers Care Oracle Wms Consultant Name Role Phone Veronica Rivera MD Primary Care Provider Ally Heath DO Primary Care Provider Unavaila ble Encounter Details Date Type Department Care Team Description 01/15/2018 Pt. Non Urgent Medical Question [address] [address] Mindy Guido MD Social History Tobacco Use Types Packs/Day Years Used Date Smoking Tobacco: Never Smokeless Tobacco: Never Alcohol Use Standard Drinks/Week Comments Yes 1.7 (1 standard drink = 0.6 oz p ure alcohol) social Sex Assigned at Date Recorded Not on file documented as of this encounter Progress Notes * Kay Rice R.N. - 01/16/2018 8:42 AM EDTFrom: Antonietta Anne-Marie Mark To: Mindy Guido MD Sent: 01/15/2018 7:04 PM EDT Subject: C section follow up appt I had a on 01/09. At the hospital, I believe I was told to make a follow up appointment forone week after the surgery. When I went to make the appointment at [facility] in [place], the covering machine operator thought the follow up should be closer to 2 weeks. So, I have an appointment scheduled for 01/18 at 9:15...is this too soon to come in and get my stitches out? I can reschedule if so. documented in this encounter Plan of Treatment Not on file documented as of this encounter Visit Diagnoses Not on filedocumented in this encounter Care Teams Oracle Wms Consultant Relationship Specialty Start Date End Date Veronica Rivera MD PCP - General Internal Medicine 03/08/12 02/15/23 Ally Mitchell DO PCP - General Internal Medicine 02/16/23 documented as of this encounter
--- OUTSIDE RECORDS SUMMARY | 2025-09-02 09:43 | XMS_ITS | Encounter Summary ---
Author Organization [facility] Prior to 07/12/2024 Address [address] [place] [address] Care Team Providers Care Actuarial Director Name Role Phone Veronica Rivera MD Primary Care Provider Unava ilable Ally Mitchell DO Primary Care Provider Unavaila ble Encounter Details Date Type Department Care Team Description 03/26/2019 Zika Virus Medical Records [address] [place] [address] Abstract, Provider Social History Tobacco Use Types Packs/Day Years Used Date Smoking Tobacco: Never Smokeless Tobacco: Never Alcohol Use Standard Drinks/Week Comments No 1.7 (1 standard drink = 0.6 oz p ure alcohol) social Sex Assigned at Date Recorded Not on file documented as of this encounter Plan of Treatment Not on file documented as of this encounter Visit Diagnoses Not on filedocumented in this encounter Care Teams Actuarial Director Relationship Specialty Start Date End Date Veronica Rivera MD PCP - General Internal Medicine 03/08/12 02/15/23 Ally Mitchell DO PCP - General Internal Medicine 02/16/23 documented as of this encounter
--- OUTSIDE RECORDS SUMMARY | 2025-09-02 09:43 | XMS_ITS | Encounter Summary ---
Author Organization [facility] Prior to 07/12/2024 Address [address] [place] [address] Care Team Providers Care Scanner Supervisor Name Role Phone Veronica Rivera MD Primary Care Provider Unava ilable Ally Mitchell DO Primary Care Provider Unavaila ble Encounter Details Date Type Department Care Team Description 01/08/2018 Release of Information Medical Records [address] [place] [address] Abstract, Provider Social History Tobacco Use Types [...] on filedocumented in this encounter Care Teams Scanner Supervisor Relationship Specialty Start Date End Date Veronica Rivera MD PCP - General Internal Medicine 03/08/12 02/15/23 Ally Mitchell DO PCP - General Internal Medicine 02/16/23 documented as of this encounter
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
--- OUTSIDE RECORDS SUMMARY | 2025-09-02 09:43 | XMS_ITS | Encounter Summary ---
Author Organization [facility] Prior to 07/12/2024 Address [address] [place] [address] Care Team Providers Care Inner Tube Inserter Name Role Phone Veronica Rivera MD Primary Care Provider Unava ilable Ally Mitchell DO Primary Care Provider Unavaila ble Encounter Details Date Type Department Care Team Description 04/07/2019 Release of Information Medical Records [address] [place] [address] Abstract, Provider Social History Tobacco Use Types [...] on filedocumented in this encounter Care Teams Inner Tube Inserter Relationship Specialty Start Date End Date Veronica Rivera MD PCP - General Internal Medicine 03/08/12 02/15/23 Ally Mitchell DO PCP - General Internal Medicine 02/16/23 documented as of this encounter
--- OUTSIDE RECORDS SUMMARY | 2025-09-02 09:43 | XMS_ITS | Encounter Summary ---
Author Organization [facility] Prior to 07/12/2024 Address [address] [place] [address] Care Team Providers Care Research Laboratory Manager Name Role Phone Veronica Rivera MD Primary Care Provider Unava ilable Ally Mitchell DO Primary Care Provider Unavaila ble Encounter Details Date Type Department Care Team Description 07/12/2017 Pt. Non Urgent Medical Question [address] [address] Mindy Guido MD Social History Tobacco Use [...] on filedocumented in this encounter Care Teams Research Laboratory Manager Relationship Specialty Start Date End Date Veronica Rivera MD PCP - General Internal Medicine 03/08/12 02/15/23 Ally Mitchell DO PCP - General Internal Medicine 02/16/23 documented as of this encounter
--- OUTSIDE RECORDS SUMMARY | 2025-09-02 09:43 | XMS_ITS | Encounter Summary ---
Author Organization [facility] Prior to 07/12/2024 Address [address] [place] [address] Care Team Providers Care Silk Screen Frame Assembler Name Role Phone Veronica Rivera MD Primary Care Provider Unava ilable Ally Mitchell DO Primary Care Provider Unavaila ble Encounter Details Date Type Department Care Team Description 04/16/2012 Release of Information Medical Records [address] [place] [address] Abstract, Provider Social History Tobacco Use Types Packs/Day Years Used Date Smoking Tobacco: Never Smokeless Tobacco: Never Alcohol Use Standard Drinks/Week Comments Yes 0 (1 standard drink = 0.6 oz pur e alcohol) social Sex Assigned at Date Recorded Not on file documented as of this encounter Plan of Treatment Not on file documented as of this encounter Visit Diagnoses Not on filedocumented in this encounter Care Teams Silk Screen Frame Assembler Relationship Specialty Start Date End Date Veronica Rivera MD PCP - General Internal Medicine 03/08/12 02/15/23 Ally Mitchell DO PCP - General Internal Medicine 02/16/23 documented as of this encounter
--- OUTSIDE RECORDS SUMMARY | 2025-09-02 09:43 | XMS_ITS | Encounter Summary ---
Author Organization [facility] Prior to 07/12/2024 Address [address] [place] [address] Care Team Providers Care Custom Shoe Designer And Maker Name Role Phone Veronica Rivera MD Primary Care Provider Ally Heath DO Primary Care Provider Unavaila ble Encounter Details Date Type Department Care Team Description 01/05/2018 Pt. Non Urgent Medical Question [address] [address] Mindy Guido MD Social History Tobacco Use Types Packs/Day Years Used Date Smoking Tobacco: Never Smokeless Tobacco: Never Alcohol Use Standard Drinks/Week Comments Yes 1.7 (1 standard drink = 0.6 oz p ure alcohol) social Sex Assigned at Date Recorded Not on file documented as of this encounter Progress Notes * Kay Rice R.N. - 01/05/2018 11:05 AM EDTFrom: Antonietta Anne-Marie Mark To: Mindy Guido MD Sent: 01/05/2018 10:49 AM EDT Subject: FMLA question This message is for both Dr. Guido and Tatiana Lomeli: My employer offers short term disability insurance for , and as I understand it this is typically 6-8 weeks of coverage depending on your delivery. I am also enrolling in FMLA for my leave, and my employer follows the federal guidelines. I was of the understanding that having a child entitled me to 12 weeks unpaid job protected leave. So, my initial plan was to take the 6-8 weeks recovery time, and then an additional 4 unpaid under FMLA. My employer is saying that in order to qualify for those additional unpaid 4 weeks (not medically necessary, but I want to take them), I would need doctors notes. I know [employer] is not my HR department, but I was just curious if you???ve been required to writedoctors notes for unpaid time off in the past. Is giving enough of a medical reason to request 12 weeks unpaid time off? Thanks in advance for your time, Antonietta documented in this encounter Plan of Treatment Not on file documented as of this encounter Visit Diagnoses Not on filedocumented in this encounter Care Teams Custom Shoe Designer And Maker Relationship Specialty Start Date End Date Veronica Rivera MD PCP - General Internal Medicine 03/08/12 02/15/23 Ally Mitchell DO PCP - General Internal Medicine 02/16/23 documented as of this encounter
--- OUTSIDE RECORDS SUMMARY | 2025-09-02 09:43 | XMS_ITS | Clinical Summary ---
Author Organization [facility] Address [address] [place] [id number] Phone Care Team Providers Care Medical Director Of Hospice Name Role Phone Veronica Rivera MD Primary [...] , by trimester (per u/s report from [facility]): T1 0.1 - 2.5 mIU/L (06/19/17 TSH [...] Additional history exists HIB VACCINES Completed 01/10/1988 MENINGOCOCCAL VACCINES (ACWY) Aged Out 03/12/2004 No [...] Smear (06/09/2011 12:00 AM EDT) 06/09/2011 Narrative [facility] - 06/21/2011 3:02 PM EDT Accession Number: [id number] Report Status: Final Type: Cytology Specimen Type: ThinPrep Pap Test Procedure Date: 06/09/2011 Ordering Provider: JACQUELYN BOUCHER M.D. CASE: [id number] PATIENT: ANTONIETTA YANG Load Checker: GILDA Enriquez(ASCP) THINPREP PAP TEST, CERVICAL FINAL CYTOLOGIC INTERPRETATION SPECIMEN ADEQUACY: Satisfactory for evaluation. QUALITY INDICATORS: Endocervical/transformation zone component absent/insufficient. INTERPRETATION: NEGATIVE FOR INTRAEPITHELIAL LESION OR MALIGNANCY. AUTOMATED REVIEW: This specimen was prescreened using the ThinPrep Imaging System. CLINICAL DATA LMP: 05/18/11 TOTAL SLIDES 1 PROCEDURES Screening or High Risk ThinPrep with Auto Pre-Screen - [facility] 1 Final Diagnosis by Doris VO(ASCP), Electronically signed on Tuesday June 21, 2011 at 03:01:19PM us Conversion Provider Not In Sys CYTOLOGY ORDERABL ES Final Result [address] [address] from Last 3 Months or Most Recently Relevant to Health Maintenance Insurance [facility] [address] [address] [place] [address] [address] [place] [address] [place] [address] [place], [place] [address] Care Teams Medical Director Of Hospice Relationship Specialty Start Date End Date Veronica Rivera MD [address] [place] [address] PCP - General Pediatrics 09/05/22 Additional Source Comments The information contained in this document represents components of the legal health record. It is not the complete legal health record.[facility]
[2025-09-02 11:17] LABS: MANUAL DIFF FLAG NO
[2025-09-02 11:22] LABS: Appearance Urine Clear; Glucose Urine UA Negative (Negative); PH 6.0 (5.0-9.0); Specific Gravity - Urine 1.015 (1.005-1.025); UMIC TRIGGER UACC YES
[2025-09-02 11:35] LABS: Hematocrit 39.4 % (37.0-47.0); Hemoglobin 12.8 g/dl (12.0-16.0); Imm Gran Abs Auto 0.01 X10*3/uL (0.00-0.03); Imm Gran Pct Auto 0.2 % (0.0-0.4); Lymphocytes Absolute Auto 1.7 X10*3/uL (1.2-4.9); Mean Corpuscular HGB Conc 32.5 g/dl (31.0-35.0); Mean Corpuscular Hemoglobin 27.9 pg (27.0-33.0); Mean Corpuscular Volume 86.0 fL (80.0-98.0); NRBC Abs Auto 0.000 X10*3/uL (0.0-0.012); NRBC Pct Auto 0.0 /100WBC (0.0-0.2); Platelet Count 160 X10*3/uL (160-400); Red Blood Count 4.58 X10*6/uL (4.20-5.50); White Blood Count 5.3 X10*3/uL (4.8-10.8)
== END 2025-09-02 09:08 | disposition home or self-care (01) ==
LOC: HO.WFDLDS 09:07
PROVIDERS: Visit Provider Physician Assistant
DX: R30.0 Dysuria (principal); D69.6 Thrombocytopenia, unspecified; R31.9 Hematuria, unspecified
CPT/HCPCS: 36415; 81001; 85025